=== PATIENT | male | born 1960 | race Caucasian/White ===

== ENCOUNTER → 2020-04-23 | Outpatient (REF) | payer BC ==
[2020-04-23 18:37] LABS: ALBUMIN 3.8 GM/DL (3.2-5.2); ALT/SGPT 31 U/L (12-78); BILIRUBIN,TOTAL 0.7 MG/DL (0.2-1.0); BLOOD UREA NITROGEN 14 MG/DL (7-18); CALCIUM LEVEL 8.7 MG/DL (8.5-10.1); CARBON DIOXIDE LEVEL 26 MEQ/L (21-32); CHLORIDE LEVEL 106 MEQ/L (98-107); CREATININE FOR GFR 0.89 MG/DL (0.70-1.30); GLOMERULAR FILTRATION RATE > 60.0 (>56); GLUCOSE, FASTING 84 MG/DL (70-100); POTASSIUM SERUM 5.7 MEQ/L (3.5-5.1); SODIUM LEVEL 137 MEQ/L (136-145); TOTAL PROTEIN 7.6 GM/DL (6.4-8.2)
== END ==
LOC: M LAB REF 17:29
PROVIDERS: ATTEND Internal Medicine Pulmonary Disease
DX: J43.9 Emphysema, unspecified (principal)

== ENCOUNTER → 2020-07-02 | Outpatient (REF) | payer BC ==
[2020-07-02 18:09] LABS: ALBUMIN 3.5 GM/DL (3.2-5.2); ALT/SGPT 25 U/L (12-78); BILIRUBIN,TOTAL 0.6 MG/DL (0.2-1.0); BLOOD UREA NITROGEN 10 MG/DL (7-18); CALCIUM LEVEL 8.8 MG/DL (8.5-10.1); CARBON DIOXIDE LEVEL 23 MEQ/L (21-32); CHLORIDE LEVEL 105 MEQ/L (98-107); CK-MB VALUE MASS < 1.0 NG/ML (<3.6); CPK CREATINE PHOSPHOKINASE 83 U/L (39-308); CREATININE FOR GFR 0.88 MG/DL (0.70-1.30); GLOMERULAR FILTRATION RATE > 60.0 (>56); GLUCOSE, FASTING 122 MG/DL (70-100); POTASSIUM SERUM 4.1 MEQ/L (3.5-5.1); SODIUM LEVEL 138 MEQ/L (136-145); TOTAL PROTEIN 7.6 GM/DL (6.4-8.2); TROPONIN I < 0.02 NG/ML (< 0.10)
== END ==
LOC: M LAB REF 16:51
PROVIDERS: ATTEND Internal Medicine Pulmonary Disease
DX: J84.112 Idiopathic pulmonary fibrosis (principal)

== ENCOUNTER → 2020-10-07 | Outpatient (REF) | payer BC ==
[2020-10-07 18:18] LABS: BASO % 0.3 % (0.0-1.0); EOS # 0.3 10^3/uL (0.0-0.5); EOS % 2.7 % (0.0-3.0); HEMATOCRIT 51.5 % (42.0-52.0); HEMOGLOBIN 16.7 g/dl (13.5-17.5); LYMPH # 4.3 10^3/uL (1.5-5.0); MEAN CORPUSCULAR HEMOGLOBIN 30.9 pg (27.0-33.0); MEAN CORPUSCULAR HGB CONC 32.4 g/dl (32.0-36.5); MEAN CORPUSCULAR VOLUME 95.4 fl (80.0-96.0); MONO % 8.9 % (2.0-8.0); NEUTROPHILS # 5.9 10^3/uL (1.5-8.5); NEUTROPHILS % 50.8 % (36.0-66.0); PLATELET COUNT, AUTOMATED 216 10^3/uL (150-450); WHITE BLOOD COUNT 11.6 10^3/uL (4.0-10.0)
[2020-10-07 18:45] LABS: ALBUMIN 4.2 GM/DL (3.2-5.2); ALT/SGPT 33 U/L (12-78); BILIRUBIN,TOTAL 0.5 MG/DL (0.2-1.0); BLOOD UREA NITROGEN 13 MG/DL (7-18); CALCIUM LEVEL 9.3 MG/DL (8.5-10.1); CARBON DIOXIDE LEVEL 30 MEQ/L (21-32); CHLORIDE LEVEL 104 MEQ/L (98-107); CREATININE FOR GFR 1.09 MG/DL (0.70-1.30); GLOMERULAR FILTRATION RATE > 60.0 (>56); GLUCOSE, FASTING 75 MG/DL (70-100); NT-PRO BNP 82 PG/ML (<125); POTASSIUM SERUM 4.6 MEQ/L (3.5-5.1); SODIUM LEVEL 141 MEQ/L (136-145); TOTAL PROTEIN 8.2 GM/DL (6.4-8.2); TROPONIN I < 0.02 NG/ML (< 0.10)
== END ==
LOC: M PLALAB 16:47
PROVIDERS: ATTEND Internal Medicine Pulmonary Disease
DX: J84.112 Idiopathic pulmonary fibrosis (principal)

== ENCOUNTER → 2021-02-09 | Outpatient (REF) | payer BC ==
[2021-02-09 14:03] LABS: CK-MB VALUE MASS < 1.0 NG/ML (<3.6); CPK CREATINE PHOSPHOKINASE 73 U/L (39-308); MB/CK RELATIVE INDEX 1.37 (< OR =4)
== END ==
LOC: M LAB REF 12:46
PROVIDERS: ATTEND Internal Medicine Pulmonary Disease
DX: J84.112 Idiopathic pulmonary fibrosis (principal)

== ENCOUNTER → 2021-04-22 | Outpatient (CLI) | payer BC ==
--- NOTE | 2021-04-22 13:01 | PFTRPT ---
Site: [facility], [address] [place], [address] ID: [id number] Name: NAYELY MOSES Visit Date: 04/22/2021 Second ID: [id number] Referring Doctor: Bonita Arechiga MD Reviewing Doctor: Shane Arguello MD Terrapin Fisher: Sonia NYE RRT Age: 61 : 1960 Sex: Male Race: Height: 64.50 Inches Weight: 211.00 Lbs BSA: 2.01 Order IDs: [id number]
--- NOTE | 2021-04-22 13:01 | PFTRPT ---
Height: 64.50 Inches Weight: 211.00 Lbs BSA: 2.01 DATE: 04/22/2021 ORDERING PHYSICIAN: Bonita Arechiga MD Pre and post bronchodilator studies have excellent technical quality. Some difficulty with effort is noted. Forced vital capacity is reduced. FEV1 is in proportion. Obstructive index is therefore normal. Expiratory limit of the flow-volume loop does suggest probably restrictive impairment. Total lung capacity is reduced. Residual volume is in proportion. Diffusing capacity is markedly reduced and does not correct for alveolar volume. Hemoglobin elevated at 18.6. Airway resistance and conductance are normal. IMPRESSION: At least mild restrictive ventilatory impairment with very significant diffusing capacity impairment and an elevated hemoglobin suggesting polycythemia. Please correlate clinically. MTDD
== END ==
LOC: M CARPUL 12:21
PROVIDERS: ATTEND Internal Medicine Pulmonary Disease
DX: J84.112 Idiopathic pulmonary fibrosis (principal)

== ENCOUNTER 2022-08-26 12:48 | Inpatient (IN) | payer BC, OTHER ==
[~2022-08-26] VITALS: Ht 167.6 cm; Wt 99.4 kg
[2022-08-26 13:47] LABS: VENOUS BASE EXCESS 0.2 (-2.0-2.0); VENOUS HCO3 26.8 MEQ/L (23.0-27.0); VENOUS O2 SATURATION 47.1 % (60.0-80.0); VENOUS PARTIAL PRESSURE CO2 50.2 mmHg (38.0-50.0); VENOUS PARTIAL PRESSURE O2 26.9 mmHg (30.0-50.0); VENOUS PH 7.345 UNITS (7.330-7.430); VENOUS STANDARD HCO3 23.2 MEQ/L; VENOUS TOTAL CO2 28.3 MEQ/L (24.0-28.0)
[2022-08-26 13:52] LABS: BASO % 0.3 % (0.0-1.0); EOS # 0.3 10^3/uL (0.0-0.5); EOS % 2.2 % (0.0-3.0); HEMATOCRIT 49.8 % (42.0-52.0); HEMOGLOBIN 16.4 g/dl (13.5-17.5); LYMPH # 2.5 10^3/uL (1.5-5.0); MEAN CORPUSCULAR HEMOGLOBIN 31.5 pg (27.0-33.0); MEAN CORPUSCULAR HGB CONC 32.9 g/dl (32.0-36.5); MEAN CORPUSCULAR VOLUME 95.6 fl (80.0-96.0); MONO # 0.9 10^3/uL (0.0-0.8); MONO % 7.2 % (2.0-8.0); NEUTROPHILS # 8.6 10^3/uL (1.5-8.5); NEUTROPHILS % 69.5 % (36.0-66.0); PLATELET COUNT, AUTOMATED 158 10^3/uL (150-450); RED BLOOD COUNT 5.21 10^6/uL (4.30-6.10); WHITE BLOOD COUNT 12.3 10^3/uL (4.0-10.0)
[2022-08-26] MEDS ORDERED: ISOVUE-370 76% 100ML VIAL As Ordered ONE ×2 (13:58→14:11)
[2022-08-26 14:05] LABS: INR 0.94; PARTIAL THROMBOPLASTIN TIME 23.5 SECONDS (24.8-34.2); PROTHROMBIN TIME 12.8 SECONDS (12.5-14.5)
[2022-08-26 14:15] LABS: ALBUMIN 3.4 G/DL (3.2-5.2); ALKALINE PHOSPHATASE 87 U/L (46-116); ALT/SGPT 36 U/L (7.0-40); AST/SGOT 25 U/L (<34); BILIRUBIN,DIRECT 0.4 MG/DL (<0.4); BILIRUBIN,TOTAL 1.1 MG/DL (0.3-1.2); BLOOD UREA NITROGEN 19 MG/DL (9-23); CALCIUM LEVEL 8.6 MG/DL (8.3-10.6); CARBON DIOXIDE LEVEL 27 MMOL/L (20-31); CHLORIDE LEVEL 101 MMOL/L (98-107); CREATININE FOR GFR 0.92 MG/DL (0.70-1.30); GLOMERULAR FILTRATION RATE > 60.0 (>49); GLUCOSE, FASTING 84 MG/DL (74-106); POTASSIUM SERUM 3.8 MMOL/L (3.5-5.1); SODIUM LEVEL 138 MMOL/L (136-145)
[2022-08-26 14:19] LABS: THYROID STIMULATING HORMONE 1.738 uIU/ML (0.55-4.78)
[2022-08-26] MEDS ORDERED: MEROPENEM INJ 1 GM in IV 1 EA IV ONE (15:40)
[2022-08-26] MEDS ORDERED: AZITHROMYCIN INJ 500 MG, VIAL MATE ADAPTER 1 EACH in NS 250 ML IV ONE (15:40)
[2022-08-26] MEDS ORDERED: ASPI81TA26 PO (16:08)
[2022-08-26] MEDS ORDERED: FURO20TA2 PO (16:08)
[2022-08-26] MEDS ORDERED: POTA-151 PO (16:08)
[2022-08-26] MEDS ORDERED: NEXI20TA PO (16:08)
[2022-08-26] MEDS ORDERED: PRED20TA PO (16:08)
[2022-08-26] MEDS ORDERED: HOME MED LIST COMPLETE! XX SCH (16:10)
[2022-08-26] MEDS ORDERED: IPRATROPIUM 0.5MG/ALBUTEROL 2.5MG INH SOL UD 3ML (DUONEB) NEB PRN (17:55)
[2022-08-26] MEDS: methylPREDNISolone 125MG 2ML VIAL IV SCH (18:46)
[2022-08-26 19:04] LABS: INR 1.01; PROTHROMBIN TIME 13.5 SECONDS (12.5-14.5)
[2022-08-26] MEDS: IPRATROPIUM 0.5MG/ALBUTEROL 2.5MG INH SOL UD 3ML (DUONEB) NEB SCH (19:07)
[2022-08-26 21:55] VITALS: BP 121/83
[2022-08-27] VITALS (7 sets, daily range): BP systolic 111–128; BP diastolic 60–88
[2022-08-27] MEDS: methylPREDNISolone 125MG 2ML VIAL IV SCH ×5 (00:42→23:36)
[2022-08-27] MEDS: IPRATROPIUM 0.5MG/ALBUTEROL 2.5MG INH SOL UD 3ML (DUONEB) NEB SCH ×4 (01:50→19:56)
[2022-08-27] MEDS: MEROPENEM INJ 1 GM in IV 1 EA IV SCH ×3 (02:33→18:14)
[2022-08-27 05:22] LABS: HEMATOCRIT 44.7 % (42.0-52.0); MEAN CORPUSCULAR HEMOGLOBIN 31.5 pg (27.0-33.0); MEAN CORPUSCULAR HGB CONC 33.6 g/dl (32.0-36.5); MEAN CORPUSCULAR VOLUME 93.9 fl (80.0-96.0); PLATELET COUNT, AUTOMATED 153 10^3/uL (150-450); RED BLOOD COUNT 4.76 10^6/uL (4.30-6.10); WHITE BLOOD COUNT 6.1 10^3/uL (4.0-10.0)
[2022-08-27 05:48] LABS: BLOOD UREA NITROGEN 16 MG/DL (9-23); CALCIUM LEVEL 8.4 MG/DL (8.3-10.6); CARBON DIOXIDE LEVEL 24 MMOL/L (20-31); CHLORIDE LEVEL 101 MMOL/L (98-107); CREATININE FOR GFR 0.78 MG/DL (0.70-1.30); GLOMERULAR FILTRATION RATE > 60.0 (>49); GLUCOSE, FASTING 157 MG/DL (74-106); POTASSIUM SERUM 4.2 MMOL/L (3.5-5.1); SODIUM LEVEL 137 MMOL/L (136-145)
[2022-08-27] MEDS: ASPIRIN 81MG ENTERIC TABLET PO SCH (08:17)
[2022-08-27] MEDS: POTASSIUM CHLORIDE 10MEQ SR TABLET PO SCH (08:18)
[2022-08-27] MEDS: FUROSEMIDE 20 MG TAB PO SCH (08:18)
[2022-08-27] MEDS ORDERED: PANTOPRAZOLE 40MG TAB (PROTONIX) PO SCH (09:00)
[2022-08-27] MEDS ORDERED: ENOXAPARIN 40MG/0.4ML SYRINGE (J1650 PER 10MG) SC SCH (09:00)
[2022-08-27] MEDS ORDERED: CHLORASEPTIC SPRAY MT PRN (15:20)
[2022-08-27] MEDS: AZITHROMYCIN INJ 500 MG, VIAL MATE ADAPTER 1 EACH in NS 250 ML IV SCH (16:36)
[2022-08-27] MEDS: PANTOPRAZOLE 40MG TAB (PROTONIX) PO SCH (20:27)
[2022-08-28 00:16] VITALS: BP 120/68
[2022-08-28] MEDS: MEROPENEM INJ 1 GM in IV 1 EA IV SCH ×2 (01:35→10:54)
[2022-08-28] MEDS: IPRATROPIUM 0.5MG/ALBUTEROL 2.5MG INH SOL UD 3ML (DUONEB) NEB SCH ×4 (01:51→21:17)
[2022-08-28 04:06] VITALS: BP 113/73
[2022-08-28] MEDS: methylPREDNISolone 125MG 2ML VIAL IV SCH ×4 (05:16→23:16)
[2022-08-28 07:28] LABS: BASO % 0.1 % (0.0-1.0); HEMATOCRIT 42.4 % (42.0-52.0); LYMPH % 6.4 % (24.0-44.0); MEAN CORPUSCULAR HEMOGLOBIN 31.4 pg (27.0-33.0); MEAN CORPUSCULAR VOLUME 95.1 fl (80.0-96.0); MONO # 0.5 10^3/uL (0.0-0.8); MONO % 3.3 % (2.0-8.0); NEUTROPHILS # 13.5 10^3/uL (1.5-8.5); NEUTROPHILS % 89.2 % (36.0-66.0); PLATELET COUNT, AUTOMATED 151 10^3/uL (150-450); RED BLOOD COUNT 4.46 10^6/uL (4.30-6.10); WHITE BLOOD COUNT 15.1 10^3/uL (4.0-10.0)
[2022-08-28 07:36] LABS: BLOOD UREA NITROGEN 17 MG/DL (9-23); CALCIUM LEVEL 8.1 MG/DL (8.3-10.6); CARBON DIOXIDE LEVEL 27 MMOL/L (20-31); CHLORIDE LEVEL 105 MMOL/L (98-107); CREATININE FOR GFR 0.77 MG/DL (0.70-1.30); GLOMERULAR FILTRATION RATE > 60.0 (>49); GLUCOSE, FASTING 148 MG/DL (74-106); POTASSIUM SERUM 4.5 MMOL/L (3.5-5.1); SODIUM LEVEL 138 MMOL/L (136-145)
[2022-08-28 08:00] VITALS: BP 98/70
[2022-08-28] MEDS: FUROSEMIDE 20 MG TAB PO SCH (09:00)
[2022-08-28] MEDS: POTASSIUM CHLORIDE 10MEQ SR TABLET PO SCH (10:54)
[2022-08-28] MEDS: ENOXAPARIN 40MG/0.4ML SYRINGE (J1650 PER 10MG) SC SCH (10:55)
[2022-08-28] MEDS: PANTOPRAZOLE 40MG TAB (PROTONIX) PO SCH ×2 (10:55→20:12)
[2022-08-28] MEDS: ASPIRIN 81MG ENTERIC TABLET PO SCH (10:55)
[2022-08-28 12:00] VITALS: BP 108/61
[2022-08-28] MEDS: AZITHROMYCIN INJ 500 MG, VIAL MATE ADAPTER 1 EACH in NS 250 ML IV SCH (16:39)
[2022-08-28 16:54] VITALS: BP 128/57
[2022-08-28 20:00] VITALS: BP 114/55
[2022-08-29] VITALS (7 sets, daily range): BP systolic 99–113; BP diastolic 58–71
[2022-08-29] MEDS: IPRATROPIUM 0.5MG/ALBUTEROL 2.5MG INH SOL UD 3ML (DUONEB) NEB SCH ×4 (01:08→20:41)
[2022-08-29 05:18] LABS: HEMATOCRIT 41.2 % (42.0-52.0); HEMOGLOBIN 13.5 g/dl (13.5-17.5); MEAN CORPUSCULAR HEMOGLOBIN 31.1 pg (27.0-33.0); MEAN CORPUSCULAR HGB CONC 32.8 g/dl (32.0-36.5); MEAN CORPUSCULAR VOLUME 94.9 fl (80.0-96.0); PLATELET COUNT, AUTOMATED 158 10^3/uL (150-450); RED BLOOD COUNT 4.34 10^6/uL (4.30-6.10); WHITE BLOOD COUNT 14.9 10^3/uL (4.0-10.0)
[2022-08-29] MEDS: methylPREDNISolone 125MG 2ML VIAL IV SCH ×3 (05:21→18:56)
[2022-08-29] MEDS: ASPIRIN 81MG ENTERIC TABLET PO SCH (09:32)
[2022-08-29] MEDS: POTASSIUM CHLORIDE 10MEQ SR TABLET PO SCH (09:32)
[2022-08-29] MEDS: BACTRIM 160MG/800MG DS TAB PO SCH (09:32)
[2022-08-29] MEDS: PANTOPRAZOLE 40MG TAB (PROTONIX) PO SCH ×2 (09:32→20:58)
[2022-08-29] MEDS: FUROSEMIDE 20 MG TAB PO SCH (09:32)
[2022-08-29] MEDS: ENOXAPARIN 40MG/0.4ML SYRINGE (J1650 PER 10MG) SC SCH (09:33)
[2022-08-29] MEDS: AZITHROMYCIN INJ 500 MG, VIAL MATE ADAPTER 1 EACH in NS 250 ML IV SCH (16:27)
[2022-08-30] MEDS: methylPREDNISolone 125MG 2ML VIAL IV SCH ×4 (00:46→17:12)
[2022-08-30] MEDS: IPRATROPIUM 0.5MG/ALBUTEROL 2.5MG INH SOL UD 3ML (DUONEB) NEB SCH ×4 (01:14→19:45)
[2022-08-30 04:51] LABS: HEMATOCRIT 40.1 % (42.0-52.0); HEMOGLOBIN 13.1 g/dl (13.5-17.5); MEAN CORPUSCULAR HEMOGLOBIN 31.1 pg (27.0-33.0); MEAN CORPUSCULAR HGB CONC 32.7 g/dl (32.0-36.5); MEAN CORPUSCULAR VOLUME 95.2 fl (80.0-96.0); PLATELET COUNT, AUTOMATED 141 10^3/uL (150-450); RED BLOOD COUNT 4.21 10^6/uL (4.30-6.10); WHITE BLOOD COUNT 11.3 10^3/uL (4.0-10.0)
[2022-08-30 04:53] VITALS: BP 108/58
[2022-08-30 05:18] LABS: BLOOD UREA NITROGEN 20 MG/DL (9-23); CALCIUM LEVEL 8.2 MG/DL (8.3-10.6); CARBON DIOXIDE LEVEL 28 MMOL/L (20-31); CHLORIDE LEVEL 103 MMOL/L (98-107); CREATININE FOR GFR 0.79 MG/DL (0.70-1.30); GLOMERULAR FILTRATION RATE > 60.0 (>49); GLUCOSE, FASTING 129 MG/DL (74-106); POTASSIUM SERUM 4.5 MMOL/L (3.5-5.1); SODIUM LEVEL 138 MMOL/L (136-145)
[2022-08-30 08:00] VITALS: BP 122/78
[2022-08-30] MEDS: POTASSIUM CHLORIDE 10MEQ SR TABLET PO SCH (08:39)
[2022-08-30] MEDS: PANTOPRAZOLE 40MG TAB (PROTONIX) PO SCH ×2 (08:39→21:45)
[2022-08-30] MEDS: ASPIRIN 81MG ENTERIC TABLET PO SCH (08:39)
[2022-08-30] MEDS: FUROSEMIDE 20 MG TAB PO SCH (08:39)
[2022-08-30] MEDS: ENOXAPARIN 40MG/0.4ML SYRINGE (J1650 PER 10MG) SC SCH (08:40)
[2022-08-30 12:00] VITALS: BP 116/68
[2022-08-30 16:00] VITALS: BP 115/69
[2022-08-30] MEDS: AZITHROMYCIN 250MG TABLET PO SCH (17:12)
[2022-08-30 20:00] VITALS: BP 94/67
[2022-08-31] VITALS: BP 97/55
[2022-08-31] MEDS: methylPREDNISolone 125MG 2ML VIAL IV SCH ×5 (00:14→23:53)
[2022-08-31] MEDS: IPRATROPIUM 0.5MG/ALBUTEROL 2.5MG INH SOL UD 3ML (DUONEB) NEB SCH ×4 (02:43→19:31)
[2022-08-31 04:00] VITALS: BP 112/69
[2022-08-31 06:00] LABS: BASO % 0.1 % (0.0-1.0); HEMATOCRIT 41.5 % (42.0-52.0); HEMOGLOBIN 13.7 g/dl (13.5-17.5); LYMPH # 0.7 10^3/uL (1.5-5.0); LYMPH % 7.5 % (24.0-44.0); MEAN CORPUSCULAR HEMOGLOBIN 31.4 pg (27.0-33.0); MEAN CORPUSCULAR VOLUME 95.2 fl (80.0-96.0); MONO # 0.4 10^3/uL (0.0-0.8); MONO % 3.9 % (2.0-8.0); NEUTROPHILS # 8.5 10^3/uL (1.5-8.5); NEUTROPHILS % 87.6 % (36.0-66.0); PLATELET COUNT, AUTOMATED 146 10^3/uL (150-450); RED BLOOD COUNT 4.36 10^6/uL (4.30-6.10); WHITE BLOOD COUNT 9.8 10^3/uL (4.0-10.0)
[2022-08-31 06:33] LABS: BLOOD UREA NITROGEN 21 MG/DL (9-23); CALCIUM LEVEL 8.2 MG/DL (8.3-10.6); CARBON DIOXIDE LEVEL 29 MMOL/L (20-31); CHLORIDE LEVEL 100 MMOL/L (98-107); CREATININE FOR GFR 0.78 MG/DL (0.70-1.30); GLOMERULAR FILTRATION RATE > 60.0 (>49); GLUCOSE, FASTING 126 MG/DL (74-106); POTASSIUM SERUM 4.2 MMOL/L (3.5-5.1); SODIUM LEVEL 135 MMOL/L (136-145)
[2022-08-31 07:39] VITALS: BP 112/73
[2022-08-31] MEDS: PANTOPRAZOLE 40MG TAB (PROTONIX) PO SCH ×2 (08:51→20:47)
[2022-08-31] MEDS: ASPIRIN 81MG ENTERIC TABLET PO SCH (08:52)
[2022-08-31] MEDS: BACTRIM 160MG/800MG DS TAB PO SCH (08:52)
[2022-08-31] MEDS: POTASSIUM CHLORIDE 10MEQ SR TABLET PO SCH (08:52)
[2022-08-31] MEDS: FUROSEMIDE 20 MG TAB PO SCH (08:52)
[2022-08-31] MEDS: ENOXAPARIN 40MG/0.4ML SYRINGE (J1650 PER 10MG) SC SCH (08:53)
[2022-08-31 12:31] VITALS: BP 118/62
[2022-08-31 16:23] VITALS: BP 110/70
[2022-08-31] MEDS: AZITHROMYCIN 250MG TABLET PO SCH (17:08)
[2022-08-31 20:00] VITALS: BP 117/67
[2022-09-01] VITALS: BP 103/68
[2022-09-01] MEDS: IPRATROPIUM 0.5MG/ALBUTEROL 2.5MG INH SOL UD 3ML (DUONEB) NEB SCH ×4 (01:40→19:26)
[2022-09-01 04:00] VITALS: BP 101/76
[2022-09-01] MEDS ORDERED: guaiFENesin SYRUP 200MG 10ML UDC PO PRN (05:25)
[2022-09-01] MEDS: methylPREDNISolone 125MG 2ML VIAL IV SCH ×4 (05:33→23:54)
[2022-09-01 05:58] LABS: BASO % 0.3 % (0.0-1.0); HEMATOCRIT 41.7 % (42.0-52.0); HEMOGLOBIN 13.9 g/dl (13.5-17.5); LYMPH # 0.6 10^3/uL (1.5-5.0); LYMPH % 6.1 % (24.0-44.0); MEAN CORPUSCULAR HEMOGLOBIN 31.4 pg (27.0-33.0); MEAN CORPUSCULAR HGB CONC 33.3 g/dl (32.0-36.5); MEAN CORPUSCULAR VOLUME 94.3 fl (80.0-96.0); MONO # 0.4 10^3/uL (0.0-0.8); MONO % 4.2 % (2.0-8.0); NEUTROPHILS # 8.9 10^3/uL (1.5-8.5); NEUTROPHILS % 88.4 % (36.0-66.0); PLATELET COUNT, AUTOMATED 153 10^3/uL (150-450); RED BLOOD COUNT 4.42 10^6/uL (4.30-6.10); WHITE BLOOD COUNT 10.1 10^3/uL (4.0-10.0)
[2022-09-01 06:08] LABS: BLOOD UREA NITROGEN 18 MG/DL (9-23); CALCIUM LEVEL 8.2 MG/DL (8.3-10.6); CARBON DIOXIDE LEVEL 29 MMOL/L (20-31); CHLORIDE LEVEL 100 MMOL/L (98-107); CREATININE FOR GFR 0.77 MG/DL (0.70-1.30); GLOMERULAR FILTRATION RATE > 60.0 (>49); GLUCOSE, FASTING 132 MG/DL (74-106); POTASSIUM SERUM 4.3 MMOL/L (3.5-5.1); SODIUM LEVEL 135 MMOL/L (136-145)
[2022-09-01 07:57] VITALS: BP 100/67
[2022-09-01] MEDS: PANTOPRAZOLE 40MG TAB (PROTONIX) PO SCH ×2 (09:29→21:05)
[2022-09-01] MEDS: ENOXAPARIN 40MG/0.4ML SYRINGE (J1650 PER 10MG) SC SCH (09:29)
[2022-09-01] MEDS: FUROSEMIDE 20 MG TAB PO SCH (09:29)
[2022-09-01] MEDS: POTASSIUM CHLORIDE 10MEQ SR TABLET PO SCH (09:29)
[2022-09-01] MEDS: ASPIRIN 81MG ENTERIC TABLET PO SCH (09:29)
[2022-09-01] MEDS: guaiFENesin ER 600 MG TAB PO SCH ×2 (09:30→21:05)
[2022-09-01 10:48] LABS: C REACTIVE PROTEIN QUANTITATIV < 0.40 MG/DL (<1.0)
[2022-09-01 12:00] VITALS: BP 113/73
[2022-09-01] MEDS: LevoFLOXacin 750 MG TABLET PO SCH (13:16)
[2022-09-01 16:00] VITALS: BP 112/76
[2022-09-01 20:00] VITALS: BP 109/65
[2022-09-02] VITALS: BP 113/72
[2022-09-02] MEDS: IPRATROPIUM 0.5MG/ALBUTEROL 2.5MG INH SOL UD 3ML (DUONEB) NEB SCH ×5 (01:43→19:46)
[2022-09-02 04:00] VITALS: BP 122/76
[2022-09-02 05:42] LABS: BASO % 0.2 % (0.0-1.0); HEMATOCRIT 43.8 % (42.0-52.0); HEMOGLOBIN 14.3 g/dl (13.5-17.5); LYMPH # 0.5 10^3/uL (1.5-5.0); LYMPH % 5.5 % (24.0-44.0); MEAN CORPUSCULAR HEMOGLOBIN 31.1 pg (27.0-33.0); MEAN CORPUSCULAR HGB CONC 32.6 g/dl (32.0-36.5); MEAN CORPUSCULAR VOLUME 95.2 fl (80.0-96.0); MONO # 0.4 10^3/uL (0.0-0.8); MONO % 4.7 % (2.0-8.0); NEUTROPHILS # 8.2 10^3/uL (1.5-8.5); PLATELET COUNT, AUTOMATED 154 10^3/uL (150-450); WHITE BLOOD COUNT 9.3 10^3/uL (4.0-10.0)
[2022-09-02] MEDS: methylPREDNISolone 125MG 2ML VIAL IV SCH ×3 (05:48→21:52)
[2022-09-02] MEDS: LevoFLOXacin 750 MG TABLET PO SCH (05:50)
[2022-09-02 06:11] LABS: BLOOD UREA NITROGEN 22 MG/DL (9-23); CALCIUM LEVEL 8.1 MG/DL (8.3-10.6); CARBON DIOXIDE LEVEL 30 MMOL/L (20-31); CHLORIDE LEVEL 100 MMOL/L (98-107); CREATININE FOR GFR 0.86 MG/DL (0.70-1.30); GLOMERULAR FILTRATION RATE > 60.0 (>49); GLUCOSE, FASTING 126 MG/DL (74-106); POTASSIUM SERUM 4.6 MMOL/L (3.5-5.1); SODIUM LEVEL 135 MMOL/L (136-145)
[2022-09-02 07:40] VITALS: BP 128/78
[2022-09-02] MEDS: ENOXAPARIN 40MG/0.4ML SYRINGE (J1650 PER 10MG) SC SCH (08:36)
[2022-09-02] MEDS: POTASSIUM CHLORIDE 10MEQ SR TABLET PO SCH (08:37)
[2022-09-02] MEDS: FUROSEMIDE 20 MG TAB PO SCH (08:37)
[2022-09-02] MEDS: guaiFENesin ER 600 MG TAB PO SCH ×2 (08:37→21:52)
[2022-09-02] MEDS: BACTRIM 160MG/800MG DS TAB PO SCH (08:37)
[2022-09-02] MEDS: PANTOPRAZOLE 40MG TAB (PROTONIX) PO SCH ×2 (08:37→21:52)
[2022-09-02] MEDS: ASPIRIN 81MG ENTERIC TABLET PO SCH (08:37)
[2022-09-02 11:54] VITALS: BP 117/74
[2022-09-02 16:10] VITALS: BP 114/76
[2022-09-02 20:00] VITALS: BP 117/70
[2022-09-03] VITALS: BP 112/56
[2022-09-03] MEDS: IPRATROPIUM 0.5MG/ALBUTEROL 2.5MG INH SOL UD 3ML (DUONEB) NEB SCH ×4 (01:42→20:03)
[2022-09-03 04:00] VITALS: BP 117/75
[2022-09-03 04:59] LABS: BASO % 0.2 % (0.0-1.0); HEMATOCRIT 41.9 % (42.0-52.0); LYMPH # 0.5 10^3/uL (1.5-5.0); LYMPH % 5.3 % (24.0-44.0); MEAN CORPUSCULAR HEMOGLOBIN 31.3 pg (27.0-33.0); MEAN CORPUSCULAR HGB CONC 33.4 g/dl (32.0-36.5); MEAN CORPUSCULAR VOLUME 93.5 fl (80.0-96.0); MONO # 0.5 10^3/uL (0.0-0.8); MONO % 5.1 % (2.0-8.0); NEUTROPHILS # 8.1 10^3/uL (1.5-8.5); NEUTROPHILS % 87.5 % (36.0-66.0); PLATELET COUNT, AUTOMATED 142 10^3/uL (150-450); RED BLOOD COUNT 4.48 10^6/uL (4.30-6.10); WHITE BLOOD COUNT 9.3 10^3/uL (4.0-10.0)
[2022-09-03 05:30] LABS: BLOOD UREA NITROGEN 17 MG/DL (9-23); CARBON DIOXIDE LEVEL 30 MMOL/L (20-31); CHLORIDE LEVEL 100 MMOL/L (98-107); CREATININE FOR GFR 0.82 MG/DL (0.70-1.30); GLOMERULAR FILTRATION RATE > 60.0 (>49); GLUCOSE, FASTING 123 MG/DL (74-106); POTASSIUM SERUM 4.2 MMOL/L (3.5-5.1); SODIUM LEVEL 135 MMOL/L (136-145)
[2022-09-03] MEDS: methylPREDNISolone 125MG 2ML VIAL IV SCH ×3 (06:09→21:10)
[2022-09-03] MEDS: LevoFLOXacin 750 MG TABLET PO SCH (06:09)
[2022-09-03 08:11] VITALS: BP 114/72
[2022-09-03] MEDS: FUROSEMIDE 20 MG TAB PO SCH (08:43)
[2022-09-03] MEDS: guaiFENesin ER 600 MG TAB PO SCH ×2 (08:44→21:10)
[2022-09-03] MEDS: ENOXAPARIN 40MG/0.4ML SYRINGE (J1650 PER 10MG) SC SCH (08:44)
[2022-09-03] MEDS: PANTOPRAZOLE 40MG TAB (PROTONIX) PO SCH ×2 (08:44→21:10)
[2022-09-03] MEDS: ASPIRIN 81MG ENTERIC TABLET PO SCH (08:44)
[2022-09-03] MEDS: POTASSIUM CHLORIDE 10MEQ SR TABLET PO SCH (08:44)
[2022-09-03 12:00] VITALS: BP 116/67
[2022-09-03 16:33] VITALS: BP 116/71
[2022-09-03 19:32] VITALS: BP 119/79
[2022-09-04] VITALS: BP 106/70
[2022-09-04] MEDS: IPRATROPIUM 0.5MG/ALBUTEROL 2.5MG INH SOL UD 3ML (DUONEB) NEB SCH ×4 (02:08→19:41)
[2022-09-04 04:00] VITALS: BP 104/62
[2022-09-04] MEDS ORDERED: DICLOFENAC EPOLAMINE 1.3% PATCH TOP ONE (05:00)
[2022-09-04] MEDS: methylPREDNISolone 125MG 2ML VIAL IV SCH ×2 (05:26→17:59)
[2022-09-04] MEDS: LevoFLOXacin 750 MG TABLET PO SCH (05:26)
[2022-09-04 06:13] LABS: BASO % 0.3 % (0.0-1.0); HEMATOCRIT 42.8 % (42.0-52.0); HEMOGLOBIN 14.4 g/dl (13.5-17.5); LYMPH # 0.6 10^3/uL (1.5-5.0); LYMPH % 6.3 % (24.0-44.0); MEAN CORPUSCULAR HEMOGLOBIN 31.2 pg (27.0-33.0); MEAN CORPUSCULAR HGB CONC 33.6 g/dl (32.0-36.5); MEAN CORPUSCULAR VOLUME 92.8 fl (80.0-96.0); MONO # 0.5 10^3/uL (0.0-0.8); MONO % 5.1 % (2.0-8.0); NEUTROPHILS # 8.8 10^3/uL (1.5-8.5); NEUTROPHILS % 85.8 % (36.0-66.0); PLATELET COUNT, AUTOMATED 150 10^3/uL (150-450); RED BLOOD COUNT 4.61 10^6/uL (4.30-6.10); WHITE BLOOD COUNT 10.2 10^3/uL (4.0-10.0)
[2022-09-04 06:41] LABS: BLOOD UREA NITROGEN 23 MG/DL (9-23); CALCIUM LEVEL 7.9 MG/DL (8.3-10.6); CARBON DIOXIDE LEVEL 28 MMOL/L (20-31); CHLORIDE LEVEL 100 MMOL/L (98-107); CREATININE FOR GFR 0.81 MG/DL (0.70-1.30); GLOMERULAR FILTRATION RATE > 60.0 (>49); GLUCOSE, FASTING 120 MG/DL (74-106); POTASSIUM SERUM 4.4 MMOL/L (3.5-5.1); SODIUM LEVEL 134 MMOL/L (136-145)
[2022-09-04 07:43] VITALS: BP 114/73
[2022-09-04] MEDS ORDERED: FUROSEMIDE 40MG/4ML VIAL IV ONE (07:50)
[2022-09-04] MEDS: guaiFENesin ER 600 MG TAB PO SCH ×2 (08:13→20:39)
[2022-09-04] MEDS: POTASSIUM CHLORIDE 10MEQ SR TABLET PO SCH (08:13)
[2022-09-04] MEDS: PANTOPRAZOLE 40MG TAB (PROTONIX) PO SCH ×2 (08:13→20:39)
[2022-09-04] MEDS: ASPIRIN 81MG ENTERIC TABLET PO SCH (08:13)
[2022-09-04] MEDS: ENOXAPARIN 40MG/0.4ML SYRINGE (J1650 PER 10MG) SC SCH (08:14)
[2022-09-04 11:47] VITALS: BP 108/67
[2022-09-04 16:29] VITALS: BP 124/79
[2022-09-04 20:00] VITALS: BP 102/66
[2022-09-04] MEDS: DICLOFENAC EPOLAMINE 1.3% PATCH TOP SCH (20:39)
[2022-09-05] VITALS (18 sets, daily range): BP systolic 110–145; BP diastolic 70–78; O2SAT 90–96
[2022-09-05] MEDS: IPRATROPIUM 0.5MG/ALBUTEROL 2.5MG INH SOL UD 3ML (DUONEB) NEB SCH ×4 (01:40→19:14)
[2022-09-05 05:07] LABS: BASO % 0.4 % (0.0-1.0); HEMATOCRIT 43.4 % (42.0-52.0); HEMOGLOBIN 14.5 g/dl (13.5-17.5); LYMPH # 0.7 10^3/uL (1.5-5.0); LYMPH % 6.3 % (24.0-44.0); MEAN CORPUSCULAR HEMOGLOBIN 31.4 pg (27.0-33.0); MEAN CORPUSCULAR HGB CONC 33.4 g/dl (32.0-36.5); MEAN CORPUSCULAR VOLUME 93.9 fl (80.0-96.0); MONO # 0.6 10^3/uL (0.0-0.8); MONO % 5.2 % (2.0-8.0); NEUTROPHILS # 9.4 10^3/uL (1.5-8.5); NEUTROPHILS % 85.6 % (36.0-66.0); PLATELET COUNT, AUTOMATED 134 10^3/uL (150-450); RED BLOOD COUNT 4.62 10^6/uL (4.30-6.10)
[2022-09-05] MEDS: methylPREDNISolone 125MG 2ML VIAL IV SCH ×2 (05:26→17:50)
[2022-09-05] MEDS: LevoFLOXacin 750 MG TABLET PO SCH (05:26)
[2022-09-05 05:38] LABS: BLOOD UREA NITROGEN 26 MG/DL (9-23); CALCIUM LEVEL 7.6 MG/DL (8.3-10.6); CARBON DIOXIDE LEVEL 30 MMOL/L (20-31); CHLORIDE LEVEL 98 MMOL/L (98-107); CREATININE FOR GFR 0.82 MG/DL (0.70-1.30); GLOMERULAR FILTRATION RATE > 60.0 (>49); GLUCOSE, FASTING 114 MG/DL (74-106); POTASSIUM SERUM 4.5 MMOL/L (3.5-5.1); SODIUM LEVEL 134 MMOL/L (136-145)
[2022-09-05] MEDS: ENOXAPARIN 40MG/0.4ML SYRINGE (J1650 PER 10MG) SC SCH (08:38)
[2022-09-05] MEDS: DICLOFENAC EPOLAMINE 1.3% PATCH TOP SCH ×2 (08:38→20:53)
[2022-09-05] MEDS: FUROSEMIDE 40MG/4ML VIAL IV SCH ×2 (08:39→17:51)
[2022-09-05] MEDS: BACTRIM 160MG/800MG DS TAB PO SCH (08:39)
[2022-09-05] MEDS: PANTOPRAZOLE 40MG TAB (PROTONIX) PO SCH ×2 (08:39→20:52)
[2022-09-05] MEDS: ASPIRIN 81MG ENTERIC TABLET PO SCH (08:39)
[2022-09-05] MEDS: POTASSIUM CHLORIDE 10MEQ SR TABLET PO SCH (08:39)
[2022-09-05] MEDS: guaiFENesin ER 600 MG TAB PO SCH ×2 (08:39→20:52)
[2022-09-06] VITALS (18 sets, daily range): BP systolic 109–116; BP diastolic 59–81; O2SAT 83–95
[2022-09-06] MEDS: IPRATROPIUM 0.5MG/ALBUTEROL 2.5MG INH SOL UD 3ML (DUONEB) NEB SCH ×4 (01:01→19:12)
[2022-09-06 05:48] LABS: BASO % 0.3 % (0.0-1.0); HEMATOCRIT 46.4 % (42.0-52.0); HEMOGLOBIN 15.7 g/dl (13.5-17.5); LYMPH # 0.6 10^3/uL (1.5-5.0); LYMPH % 4.4 % (24.0-44.0); MEAN CORPUSCULAR HEMOGLOBIN 31.9 pg (27.0-33.0); MEAN CORPUSCULAR HGB CONC 33.8 g/dl (32.0-36.5); MEAN CORPUSCULAR VOLUME 94.3 fl (80.0-96.0); MONO # 0.6 10^3/uL (0.0-0.8); MONO % 4.4 % (2.0-8.0); NEUTROPHILS # 11.6 10^3/uL (1.5-8.5); PLATELET COUNT, AUTOMATED 134 10^3/uL (150-450); RED BLOOD COUNT 4.92 10^6/uL (4.30-6.10); WHITE BLOOD COUNT 13.1 10^3/uL (4.0-10.0)
[2022-09-06 06:15] LABS: BLOOD UREA NITROGEN 30 MG/DL (9-23); CALCIUM LEVEL 7.7 MG/DL (8.3-10.6); CARBON DIOXIDE LEVEL 30 MMOL/L (20-31); CHLORIDE LEVEL 94 MMOL/L (98-107); CREATININE FOR GFR 0.87 MG/DL (0.70-1.30); GLOMERULAR FILTRATION RATE > 60.0 (>49); GLUCOSE, FASTING 136 MG/DL (74-106); POTASSIUM SERUM 4.1 MMOL/L (3.5-5.1); SODIUM LEVEL 132 MMOL/L (136-145)
[2022-09-06] MEDS: LevoFLOXacin 750 MG TABLET PO SCH (06:15)
[2022-09-06] MEDS: methylPREDNISolone 125MG 2ML VIAL IV SCH (06:15)
[2022-09-06] MEDS: ENOXAPARIN 40MG/0.4ML SYRINGE (J1650 PER 10MG) SC SCH (08:37)
[2022-09-06] MEDS: DICLOFENAC EPOLAMINE 1.3% PATCH TOP SCH ×2 (08:38→20:38)
[2022-09-06] MEDS: FUROSEMIDE 20 MG TAB PO SCH (08:38)
[2022-09-06] MEDS: ASPIRIN 81MG ENTERIC TABLET PO SCH (08:38)
[2022-09-06] MEDS: POTASSIUM CHLORIDE 10MEQ SR TABLET PO SCH (08:38)
[2022-09-06] MEDS: guaiFENesin ER 600 MG TAB PO SCH ×2 (08:39→20:38)
[2022-09-06] MEDS: PANTOPRAZOLE 40MG TAB (PROTONIX) PO SCH ×2 (08:39→20:38)
[2022-09-06] MEDS: IBUPROFEN 400MG TAB PO PRN (11:31)
[2022-09-06 17:07] LABS: BODY FLUID CULTURE Not indicated. (.); LEGIONELLA ANTIGEN URINE Negative (Negative); ORGANISM ID Not indicated. (.); SPECIMEN SOURCE Urine (.); URINE STREP PNEUMONIAE ANTIGEN Negative (Negative)
[2022-09-06] MEDS ORDERED: methylPREDNISolone 125MG 2ML VIAL IV SCH (18:00)
[2022-09-07] VITALS: BP 122/82; O2SAT 97
[2022-09-07] MEDS: IPRATROPIUM 0.5MG/ALBUTEROL 2.5MG INH SOL UD 3ML (DUONEB) NEB SCH ×3 (01:05→13:48)
[2022-09-07] MEDS: IBUPROFEN 400MG TAB PO PRN (01:54)
[2022-09-07] MEDS ORDERED: MORPHINE 2 MG/ML 1ML VIAL IV ONE ×2 (02:10→05:15)
[2022-09-07] MEDS ORDERED: MORPHINE 2 MG/ML 1ML VIAL As Ordered ONE (02:17)
[2022-09-07 04:00] VITALS: BP 123/72
[2022-09-07 05:41] LABS: BASO % 0.2 % (0.0-1.0); EOS % 0.2 % (0.0-3.0); HEMATOCRIT 46.7 % (42.0-52.0); HEMOGLOBIN 15.1 g/dl (13.5-17.5); LYMPH # 1.7 10^3/uL (1.5-5.0); LYMPH % 10.5 % (24.0-44.0); MEAN CORPUSCULAR HEMOGLOBIN 30.9 pg (27.0-33.0); MEAN CORPUSCULAR HGB CONC 32.3 g/dl (32.0-36.5); MEAN CORPUSCULAR VOLUME 95.5 fl (80.0-96.0); MONO # 0.7 10^3/uL (0.0-0.8); MONO % 4.7 % (2.0-8.0); NEUTROPHILS # 13.1 10^3/uL (1.5-8.5); NEUTROPHILS % 82.6 % (36.0-66.0); PLATELET COUNT, AUTOMATED 137 10^3/uL (150-450); RED BLOOD COUNT 4.89 10^6/uL (4.30-6.10); WHITE BLOOD COUNT 15.8 10^3/uL (4.0-10.0)
[2022-09-07 06:05] LABS: BLOOD UREA NITROGEN 26 MG/DL (9-23); CALCIUM LEVEL 7.7 MG/DL (8.3-10.6); CARBON DIOXIDE LEVEL 31 MMOL/L (20-31); CHLORIDE LEVEL 98 MMOL/L (98-107); GLOMERULAR FILTRATION RATE > 60.0 (>49); GLUCOSE, FASTING 85 MG/DL (74-106); POTASSIUM SERUM 4.2 MMOL/L (3.5-5.1); SODIUM LEVEL 134 MMOL/L (136-145)
[2022-09-07] MEDS: LevoFLOXacin 750 MG TABLET PO SCH (06:35)
[2022-09-07 08:00] VITALS: BP 135/80
[2022-09-07] MEDS ORDERED: HYDROMORPHONE HCL 0.5 MG/ 0.5 ML SYRINGE IV PRN (08:15)
[2022-09-07] MEDS: ASPIRIN 81MG ENTERIC TABLET PO SCH (08:48)
[2022-09-07] MEDS: ENOXAPARIN 40MG/0.4ML SYRINGE (J1650 PER 10MG) SC SCH (08:48)
[2022-09-07] MEDS: BACTRIM 160MG/800MG DS TAB PO SCH (08:49)
[2022-09-07] MEDS: PANTOPRAZOLE 40MG TAB (PROTONIX) PO SCH (08:49)
[2022-09-07] MEDS: POTASSIUM CHLORIDE 10MEQ SR TABLET PO SCH (08:49)
[2022-09-07] MEDS: guaiFENesin ER 600 MG TAB PO SCH (08:49)
[2022-09-07] MEDS: FUROSEMIDE 20 MG TAB PO SCH (08:49)
[2022-09-07] MEDS: DICLOFENAC EPOLAMINE 1.3% PATCH TOP SCH (09:00)
[2022-09-07] MEDS ORDERED: predniSONE 20 MG TAB PO SCH (09:00)
[2022-09-07] MEDS ORDERED: IBUP-1114 PO (10:52)
[2022-09-07] MEDS ORDERED: DICL1PAT6 TOP (10:52)
[2022-09-07] MEDS ORDERED: LIDO5DIS41 TOP (10:52)
[2022-09-07] MEDS ORDERED: PANT40TA29 PO (10:52)
[2022-09-07] MEDS ORDERED: PRED20TA PO (10:52)
[2022-09-07] MEDS ORDERED: LEVO1TAB40 PO (10:52)
[2022-09-07] MEDS ORDERED: BACTDSTA PO (10:52)
[2022-09-07] MEDS ORDERED: OXYC-517 PO (10:52)
[2022-09-07 11:55] VITALS: BP 113/85
[2022-09-07] MEDS ORDERED: DICL20GE TP (12:39)
[2022-09-10] MEDS ORDERED: predniSONE 20 MG TAB PO SCH (09:00)
[2022-09-13] MEDS ORDERED: predniSONE 20 MG TAB PO SCH (09:00)
== END 2022-09-07 14:20 | disposition home health service (06) | DRG 133 ==
LOC: M ED 12:48 → M ED INP 17:40 → M PCU 21:45
PROVIDERS: ADMIT Internal Medicine; ATTEND Student in an Organized Health Care Education/Training Program
DX: J96.21 Acute and chronic respiratory failure with hypoxia (principal); I50.33 Acute on chronic diastolic (congestive) heart failure; D84.9 Immunodeficiency, unspecified; J12.1 Respiratory syncytial virus pneumonia; J47.1 Bronchiectasis with (acute) exacerbation; J84.112 Idiopathic pulmonary fibrosis; C34.90 Malignant neoplasm of unspecified part of unspecified bronchus or lung; Z99.81 Dependence on supplemental oxygen; R04.2 Hemoptysis; E87.1 Hypo-osmolality and hyponatremia; I25.10 Atherosclerotic heart disease of native coronary artery without angina pectoris; J20.5 Acute bronchitis due to respiratory syncytial virus; K21.9 Gastro-esophageal reflux disease without esophagitis; M19.90 Unspecified osteoarthritis, unspecified site; Z92.3 Personal history of irradiation; Z88.0 Allergy status to penicillin; Z79.899 Other long term (current) drug therapy; Z79.82 Long term (current) use of aspirin; Z87.891 Personal history of nicotine dependence; Z79.52 Long term (current) use of systemic steroids

== ENCOUNTER 2022-09-14 14:04 | Inpatient (IN) | payer OTHER ==
[~2022-09-14] VITALS: Ht 167.6 cm; Wt 98.1 kg
[~2022-09-14 14:04] MED LIST: ASPI81TA26 PO; BACTDSTA PO; DICL1PAT6 TOP; DICL20GE TP; FURO20TA2 PO; IBUP-1114 PO; LEVO1TAB40 PO; LIDO5DIS41 TOP; NEXI20TA PO; OXYC-517 PO; PANT40TA29 PO; POTA-151 PO; PRED20TA PO
[2022-09-14] MEDS: IPRATROPIUM 0.5MG/ALBUTEROL 2.5MG INH SOL UD 3ML (DUONEB) NEB PRN ×3 (14:15→14:45)
[2022-09-14 14:53] LABS: BASO % 0.1 % (0.0-1.0); EOS % 0.1 % (0.0-3.0); HEMATOCRIT 44.5 % (42.0-52.0); HEMOGLOBIN 14.5 g/dl (13.5-17.5); LYMPH # 0.5 10^3/uL (1.5-5.0); LYMPH % 5.7 % (24.0-44.0); MEAN CORPUSCULAR HEMOGLOBIN 31.1 pg (27.0-33.0); MEAN CORPUSCULAR HGB CONC 32.6 g/dl (32.0-36.5); MEAN CORPUSCULAR VOLUME 95.5 fl (80.0-96.0); MONO # 0.2 10^3/uL (0.0-0.8); MONO % 2.5 % (2.0-8.0); NEUTROPHILS # 8.1 10^3/uL (1.5-8.5); NEUTROPHILS % 90.7 % (36.0-66.0); RED BLOOD COUNT 4.66 10^6/uL (4.30-6.10); WHITE BLOOD COUNT 8.9 10^3/uL (4.0-10.0)
[2022-09-14 15:21] LABS: ALBUMIN 2.7 G/DL (3.2-5.2); ALKALINE PHOSPHATASE 97 U/L (46-116); ALT/SGPT 55 U/L (7.0-40); AST/SGOT 36 U/L (<34); BILIRUBIN,DIRECT 0.5 MG/DL (<0.4); BILIRUBIN,TOTAL 1.4 MG/DL (0.3-1.2); BLOOD UREA NITROGEN 19 MG/DL (9-23); CALCIUM LEVEL 7.3 MG/DL (8.3-10.6); CARBON DIOXIDE LEVEL 25 MMOL/L (20-31); CHLORIDE LEVEL 102 MMOL/L (98-107); GLOMERULAR FILTRATION RATE > 60.0 (>49); GLUCOSE, FASTING 125 MG/DL (74-106); POTASSIUM SERUM 3.9 MMOL/L (3.5-5.1); SODIUM LEVEL 137 MMOL/L (136-145); TOTAL PROTEIN 5.4 G/DL (5.7-8.2)
[2022-09-14 15:24] LABS: PLATELET COUNT, AUTOMATED 90 10^3/uL (150-450)
[2022-09-14 15:24] LABS: THYROID STIMULATING HORMONE 2.007 uIU/ML (0.55-4.78)
[2022-09-14] MEDS ORDERED: PANT40TA29 PO (15:25)
[2022-09-14] MEDS ORDERED: LevoFLOXacin IV 750 MG in IV 1 EA IV ONE (15:30)
[2022-09-14] MEDS ORDERED: HOME MED LIST COMPLETE! XX SCH (15:30)
[2022-09-14] MEDS ORDERED: ISOVUE-370 76% 100ML VIAL As Ordered ONE (15:35)
[2022-09-14] MEDS ORDERED: FUROSEMIDE 20MG/2ML VIAL IV ONE (16:35)
[2022-09-14] MEDS ORDERED: ACETAMINOPHEN TAB 650MG DOSE (2X325MG) PO PRN (16:35)
[2022-09-14] MEDS ORDERED: VANCOMYCIN HCL 1,000 MG, VIAL MATE ADAPTER 1 EACH in NS 250 ML IV SCH (16:35)
[2022-09-14] MEDS ORDERED: MAALOX 30 ML SUSP *UDC PO PRN (16:35)
[2022-09-14] MEDS ORDERED: MOM 30ML SUSPENSION UDC PO PRN (16:35)
[2022-09-14] MEDS ORDERED: IPRATROPIUM 0.5MG/ALBUTEROL 2.5MG INH SOL UD 3ML (DUONEB) NEB PRN (16:35)
[2022-09-14 18:11] VITALS: BP 99/62
[2022-09-14] MEDS: methylPREDNISolone 125MG 2ML VIAL IV SCH ×2 (18:45→23:49)
[2022-09-14 19:55] VITALS: BP 105/55
[2022-09-14] MEDS: IPRATROPIUM 0.5MG/ALBUTEROL 2.5MG INH SOL UD 3ML (DUONEB) NEB SCH (20:03)
[2022-09-14] MEDS ORDERED: VANCOMYCIN HCL 1,000 MG, VIAL MATE ADAPTER 1 EACH in NS 250 ML IV ONE ×2 (21:00→22:00)
[2022-09-14] MEDS: DOCUSATE SODIUM 100MG CAPSULE PO SCH ×2 (21:00→21:28)
[2022-09-14] MEDS: MEROPENEM INJ 1 GM in IV 1 EA IV SCH (21:28)
[2022-09-14] MEDS: guaiFENesin ER 600 MG TAB PO SCH (21:28)
[2022-09-14] MEDS: PANTOPRAZOLE 40MG TAB (PROTONIX) PO SCH (21:28)
[2022-09-14 23:54] VITALS: BP 92/67
[2022-09-15 03:18] LABS: BASO % 0.1 % (0.0-1.0); HEMATOCRIT 39.6 % (42.0-52.0); HEMOGLOBIN 13.4 g/dl (13.5-17.5); LYMPH # 0.5 10^3/uL (1.5-5.0); LYMPH % 5.1 % (24.0-44.0); MEAN CORPUSCULAR HEMOGLOBIN 31.6 pg (27.0-33.0); MEAN CORPUSCULAR HGB CONC 33.8 g/dl (32.0-36.5); MEAN CORPUSCULAR VOLUME 93.4 fl (80.0-96.0); MONO # 0.1 10^3/uL (0.0-0.8); MONO % 1.4 % (2.0-8.0); NEUTROPHILS # 8.9 10^3/uL (1.5-8.5); NEUTROPHILS % 92.8 % (36.0-66.0); RED BLOOD COUNT 4.24 10^6/uL (4.30-6.10); WHITE BLOOD COUNT 9.5 10^3/uL (4.0-10.0)
[2022-09-15 03:29] LABS: PLATELET COUNT, AUTOMATED 84 10^3/uL (150-450)
[2022-09-15 03:39] LABS: BLOOD UREA NITROGEN 20 MG/DL (9-23); CALCIUM LEVEL 6.9 MG/DL (8.3-10.6); CARBON DIOXIDE LEVEL 24 MMOL/L (20-31); CHLORIDE LEVEL 102 MMOL/L (98-107); CREATININE FOR GFR 0.76 MG/DL (0.70-1.30); GLOMERULAR FILTRATION RATE > 60.0 (>49); GLUCOSE, FASTING 126 MG/DL (74-106); POTASSIUM SERUM 4.1 MMOL/L (3.5-5.1); SODIUM LEVEL 134 MMOL/L (136-145)
[2022-09-15 04:00] VITALS: BP 125/90
[2022-09-15 04:06] LABS: ABG BASE EXCESS -1.7 (-2.0-2.0); ABG HCO3 21.7 MEQ/L (22.0-26.0); ABG O2 SATURATION 93.6 % (95.0-99.0); ABG PARTIAL PRESSURE CO2 33.2 mmHg (35.0-45.0); ABG PARTIAL PRESSURE O2 66.9 mmHg (75.0-100.0); ABG TOTAL CO2 22.8 MEQ/L (23.0-31.0); ABG pH (ARTERIAL) 7.434 UNITS (7.350-7.450)
[2022-09-15] MEDS: MEROPENEM INJ 1 GM in IV 1 EA IV SCH ×3 (04:19→20:22)
[2022-09-15] MEDS ORDERED: VANCOMYCIN HCL 750 MG, VIAL MATE ADAPTER 1 EACH in D5W 250 ML IV SCH (05:00)
[2022-09-15] MEDS ORDERED: VANCOMYCIN HCL 500 MG in D5W MINI-BAG PLUS 100 ML IV SCH (06:00)
[2022-09-15] MEDS: methylPREDNISolone 125MG 2ML VIAL IV SCH ×4 (06:11→23:35)
[2022-09-15] MEDS: IPRATROPIUM 0.5MG/ALBUTEROL 2.5MG INH SOL UD 3ML (DUONEB) NEB SCH ×3 (07:30→20:46)
[2022-09-15] MEDS ORDERED: FUROSEMIDE 20MG/2ML VIAL IV ONE (07:40)
[2022-09-15 08:00] VITALS: BP 118/61
[2022-09-15] MEDS: ENOXAPARIN 40MG/0.4ML SYRINGE (J1650 PER 10MG) SC SCH (08:43)
[2022-09-15] MEDS: DOCUSATE SODIUM 100MG CAPSULE PO SCH ×2 (08:50→20:23)
[2022-09-15] MEDS: PANTOPRAZOLE 40MG TAB (PROTONIX) PO SCH ×2 (08:51→20:23)
[2022-09-15] MEDS: guaiFENesin ER 600 MG TAB PO SCH ×2 (08:51→20:23)
[2022-09-15] MEDS: ASPIRIN 81MG ENTERIC TABLET PO SCH (08:51)
[2022-09-15 12:00] VITALS: BP 118/72
[2022-09-15 16:00] VITALS: BP 117/70
[2022-09-15 20:00] VITALS: BP 118/80
[2022-09-16] VITALS (7 sets, daily range): BP systolic 108–132; BP diastolic 69–78
[2022-09-16] MEDS: IPRATROPIUM 0.5MG/ALBUTEROL 2.5MG INH SOL UD 3ML (DUONEB) NEB SCH ×4 (02:20→19:58)
[2022-09-16] MEDS: MEROPENEM INJ 1 GM in IV 1 EA IV SCH ×3 (03:59→19:23)
[2022-09-16 04:56] LABS: BASO % 0.1 % (0.0-1.0); HEMATOCRIT 38.2 % (42.0-52.0); HEMOGLOBIN 12.6 g/dl (13.5-17.5); LYMPH # 0.5 10^3/uL (1.5-5.0); LYMPH % 4.6 % (24.0-44.0); MEAN CORPUSCULAR HEMOGLOBIN 31.2 pg (27.0-33.0); MEAN CORPUSCULAR VOLUME 94.6 fl (80.0-96.0); MONO # 0.3 10^3/uL (0.0-0.8); MONO % 2.3 % (2.0-8.0); NEUTROPHILS # 10.9 10^3/uL (1.5-8.5); NEUTROPHILS % 92.3 % (36.0-66.0); RED BLOOD COUNT 4.04 10^6/uL (4.30-6.10); WHITE BLOOD COUNT 11.8 10^3/uL (4.0-10.0)
[2022-09-16 04:58] LABS: PLATELET COUNT, AUTOMATED 87 10^3/uL (150-450)
[2022-09-16 05:12] LABS: MAGNESIUM LEVEL 2.1 MG/DL (1.8-2.4)
[2022-09-16 05:13] LABS: BLOOD UREA NITROGEN 23 MG/DL (9-23); CALCIUM LEVEL 7.7 MG/DL (8.3-10.6); CARBON DIOXIDE LEVEL 26 MMOL/L (20-31); CHLORIDE LEVEL 103 MMOL/L (98-107); CREATININE FOR GFR 0.75 MG/DL (0.70-1.30); GLOMERULAR FILTRATION RATE > 60.0 (>49); GLUCOSE, FASTING 149 MG/DL (74-106); SODIUM LEVEL 136 MMOL/L (136-145)
[2022-09-16] MEDS: methylPREDNISolone 125MG 2ML VIAL IV SCH ×3 (05:28→17:28)
[2022-09-16 06:20] LABS: ABG BASE EXCESS 3.2 (-2.0-2.0); ABG HCO3 26.4 MEQ/L (22.0-26.0); ABG O2 SATURATION 88.2 % (95.0-99.0); ABG PARTIAL PRESSURE CO2 35.8 mmHg (35.0-45.0); ABG TOTAL CO2 27.5 MEQ/L (23.0-31.0); ABG pH (ARTERIAL) 7.485 UNITS (7.350-7.450)
[2022-09-16] MEDS ORDERED: FUROSEMIDE 20MG/2ML VIAL IV ONE ×2 (08:00→14:00)
[2022-09-16] MEDS: ENOXAPARIN 40MG/0.4ML SYRINGE (J1650 PER 10MG) SC SCH (08:15)
[2022-09-16] MEDS: ASPIRIN 81MG ENTERIC TABLET PO SCH (08:57)
[2022-09-16] MEDS: guaiFENesin ER 600 MG TAB PO SCH ×2 (08:57→20:49)
[2022-09-16] MEDS: PANTOPRAZOLE 40MG TAB (PROTONIX) PO SCH ×2 (08:57→20:49)
[2022-09-16] MEDS: BACTRIM 160MG/800MG DS TAB PO SCH (08:57)
[2022-09-16] MEDS: DOCUSATE SODIUM 100MG CAPSULE PO SCH ×2 (08:58→20:49)
[2022-09-17] VITALS (7 sets, daily range): BP systolic 122–136; BP diastolic 78–89
[2022-09-17] MEDS: methylPREDNISolone 125MG 2ML VIAL IV SCH ×5 (00:21→23:25)
[2022-09-17] MEDS: IPRATROPIUM 0.5MG/ALBUTEROL 2.5MG INH SOL UD 3ML (DUONEB) NEB SCH ×4 (00:47→19:16)
[2022-09-17] MEDS: MEROPENEM INJ 1 GM in IV 1 EA IV SCH ×3 (04:17→19:34)
[2022-09-17 04:30] LABS: BASO % 0.1 % (0.0-1.0); HEMATOCRIT 39.3 % (42.0-52.0); HEMOGLOBIN 12.7 g/dl (13.5-17.5); LYMPH # 0.7 10^3/uL (1.5-5.0); LYMPH % 6.4 % (24.0-44.0); MEAN CORPUSCULAR HGB CONC 32.3 g/dl (32.0-36.5); MEAN CORPUSCULAR VOLUME 95.9 fl (80.0-96.0); MONO # 0.2 10^3/uL (0.0-0.8); MONO % 2.4 % (2.0-8.0); NEUTROPHILS # 9.1 10^3/uL (1.5-8.5); NEUTROPHILS % 90.1 % (36.0-66.0); WHITE BLOOD COUNT 10.1 10^3/uL (4.0-10.0)
[2022-09-17 04:39] LABS: PLATELET COUNT, AUTOMATED 85 10^3/uL (150-450)
[2022-09-17 04:58] LABS: BLOOD UREA NITROGEN 32 MG/DL (9-23); CALCIUM LEVEL 7.6 MG/DL (8.3-10.6); CARBON DIOXIDE LEVEL 28 MMOL/L (20-31); CHLORIDE LEVEL 100 MMOL/L (98-107); CREATININE FOR GFR 0.78 MG/DL (0.70-1.30); GLOMERULAR FILTRATION RATE > 60.0 (>49); GLUCOSE, FASTING 137 MG/DL (74-106); MAGNESIUM LEVEL 2.3 MG/DL (1.8-2.4); POTASSIUM SERUM 4.2 MMOL/L (3.5-5.1); SODIUM LEVEL 135 MMOL/L (136-145)
[2022-09-17] MEDS: ASPIRIN 81MG ENTERIC TABLET PO SCH (08:35)
[2022-09-17] MEDS: PANTOPRAZOLE 40MG TAB (PROTONIX) PO SCH ×2 (08:35→20:24)
[2022-09-17] MEDS: guaiFENesin ER 600 MG TAB PO SCH ×2 (08:35→20:24)
[2022-09-17] MEDS: DOCUSATE SODIUM 100MG CAPSULE PO SCH ×2 (08:58→20:24)
[2022-09-17] MEDS: ENOXAPARIN 40MG/0.4ML SYRINGE (J1650 PER 10MG) SC SCH (09:40)
[2022-09-18] VITALS (9 sets, daily range): BP systolic 118–133; BP diastolic 67–83; O2SAT 90
[2022-09-18] MEDS: IPRATROPIUM 0.5MG/ALBUTEROL 2.5MG INH SOL UD 3ML (DUONEB) NEB SCH ×4 (02:46→19:48)
[2022-09-18] MEDS: MEROPENEM INJ 1 GM in IV 1 EA IV SCH ×3 (03:56→20:02)
[2022-09-18] MEDS: methylPREDNISolone 125MG 2ML VIAL IV SCH ×4 (05:30→23:58)
[2022-09-18 05:33] LABS: BLOOD UREA NITROGEN 33 MG/DL (9-23); CALCIUM LEVEL 8.2 MG/DL (8.3-10.6); CARBON DIOXIDE LEVEL 27 MMOL/L (20-31); CHLORIDE LEVEL 101 MMOL/L (98-107); CREATININE FOR GFR 0.67 MG/DL (0.70-1.30); GLOMERULAR FILTRATION RATE > 60.0 (>49); GLUCOSE, FASTING 146 MG/DL (74-106); MAGNESIUM LEVEL 2.4 MG/DL (1.8-2.4); POTASSIUM SERUM 4.9 MMOL/L (3.5-5.1); SODIUM LEVEL 136 MMOL/L (136-145)
[2022-09-18 05:59] LABS: BASO % 0.2 % (0.0-1.0); HEMATOCRIT 39.2 % (42.0-52.0); LYMPH # 0.6 10^3/uL (1.5-5.0); LYMPH % 6.6 % (24.0-44.0); MEAN CORPUSCULAR HEMOGLOBIN 31.6 pg (27.0-33.0); MEAN CORPUSCULAR HGB CONC 33.2 g/dl (32.0-36.5); MEAN CORPUSCULAR VOLUME 95.1 fl (80.0-96.0); MONO # 0.2 10^3/uL (0.0-0.8); NEUTROPHILS # 7.6 10^3/uL (1.5-8.5); RED BLOOD COUNT 4.12 10^6/uL (4.30-6.10); WHITE BLOOD COUNT 8.5 10^3/uL (4.0-10.0)
[2022-09-18 06:26] LABS: PLATELET COUNT, AUTOMATED 83 10^3/uL (150-450)
[2022-09-18] MEDS: DOCUSATE SODIUM 100MG CAPSULE PO SCH ×3 (08:08→21:00)
[2022-09-18] MEDS: guaiFENesin ER 600 MG TAB PO SCH ×2 (08:08→20:05)
[2022-09-18] MEDS: ASPIRIN 81MG ENTERIC TABLET PO SCH (08:08)
[2022-09-18] MEDS: PANTOPRAZOLE 40MG TAB (PROTONIX) PO SCH ×2 (08:08→20:05)
[2022-09-18] MEDS: ENOXAPARIN 40MG/0.4ML SYRINGE (J1650 PER 10MG) SC SCH (08:15)
[2022-09-18] MEDS ORDERED: ALPRAZolam 0.25 MG TAB PO ONE ×2 (21:00→22:00)
[2022-09-19] VITALS: BP 125/81
[2022-09-19 00:03] VITALS: BP 125/81
[2022-09-19 00:36] LABS: ABG BASE EXCESS 2.8 (-2.0-2.0); ABG HCO3 27.4 MEQ/L (22.0-26.0); ABG O2 SATURATION 89.6 % (95.0-99.0); ABG PARTIAL PRESSURE CO2 42.4 mmHg (35.0-45.0); ABG PARTIAL PRESSURE O2 60.8 mmHg (75.0-100.0); ABG STANDARD HCO3 26.7 MEQ/L (22.0-26.0); ABG TOTAL CO2 28.7 MEQ/L (23.0-31.0); ABG pH (ARTERIAL) 7.429 UNITS (7.350-7.450)
[2022-09-19] MEDS: IPRATROPIUM 0.5MG/ALBUTEROL 2.5MG INH SOL UD 3ML (DUONEB) NEB SCH ×2 (01:04→07:29)
[2022-09-19] MEDS: MEROPENEM INJ 1 GM in IV 1 EA IV SCH (03:18)
[2022-09-19 03:20] VITALS: BP 123/83
[2022-09-19 04:00] VITALS: BP 123/83
[2022-09-19 04:32] LABS: HEMOGLOBIN 12.6 g/dl (13.5-17.5); MEAN CORPUSCULAR HEMOGLOBIN 31.7 pg (27.0-33.0); MEAN CORPUSCULAR HGB CONC 33.2 g/dl (32.0-36.5); MEAN CORPUSCULAR VOLUME 95.5 fl (80.0-96.0); RED BLOOD COUNT 3.98 10^6/uL (4.30-6.10)
[2022-09-19 04:36] LABS: PLATELET COUNT, AUTOMATED 90 10^3/uL (150-450)
[2022-09-19 04:54] LABS: BLOOD UREA NITROGEN 35 MG/DL (9-23); CALCIUM LEVEL 8.2 MG/DL (8.3-10.6); CARBON DIOXIDE LEVEL 28 MMOL/L (20-31); CHLORIDE LEVEL 101 MMOL/L (98-107); CREATININE FOR GFR 0.63 MG/DL (0.70-1.30); GLOMERULAR FILTRATION RATE > 60.0 (>49); GLUCOSE, FASTING 142 MG/DL (74-106); MAGNESIUM LEVEL 2.4 MG/DL (1.8-2.4); POTASSIUM SERUM 4.5 MMOL/L (3.5-5.1); SODIUM LEVEL 137 MMOL/L (136-145)
[2022-09-19] MEDS: methylPREDNISolone 125MG 2ML VIAL IV SCH (05:29)
[2022-09-19 05:33] LABS: LYMPHOCYTES 3 % (16-44); METAMYELOCYTES 2 % (0-0); MONOCYTES 2 % (0-5); MYELOCYTES 2 % (0-0); NEUTROPHILS 82 % (28-66); NUCLEATED RED BLOOD CELL 2 % (0-0)
[2022-09-19 05:34] LABS: PLATELET ESTIMATE DECREASED (NORMAL)
[2022-09-19 08:00] VITALS: BP 131/82
[2022-09-19] MEDS ORDERED: FUROSEMIDE 40MG/4ML VIAL IV ONE (08:00)
[2022-09-19] MEDS ORDERED: LORazepam 2 MG/ML 1ML VIAL IV STA (08:00)
[2022-09-19] MEDS ORDERED: LORazepam 2 MG/ML 1ML VIAL As Ordered ONE (08:10)
[2022-09-19] MEDS ORDERED: FUROSEMIDE 40MG/4ML VIAL As Ordered ONE (08:13)
[2022-09-19] MEDS: BACTRIM 160MG/800MG DS TAB PO SCH (09:00)
[2022-09-19] MEDS: guaiFENesin ER 600 MG TAB PO SCH (09:00)
[2022-09-19] MEDS: ASPIRIN 81MG ENTERIC TABLET PO SCH (09:00)
[2022-09-19] MEDS: DOCUSATE SODIUM 100MG CAPSULE PO SCH (09:00)
[2022-09-19] MEDS: PANTOPRAZOLE 40MG TAB (PROTONIX) PO SCH (09:00)
[2022-09-19] MEDS: ENOXAPARIN 40MG/0.4ML SYRINGE (J1650 PER 10MG) SC SCH (09:55)
[2022-09-19] MEDS ORDERED: LORazepam 2 MG/ML 1ML VIAL IV PRN (11:25)
[2022-09-19] MEDS ORDERED: SCOPOLAMINE 1MG TRANSDERMAL PATCH TOP PRN (11:25)
[2022-09-19] MEDS ORDERED: MORPHINE SULF IN 0.9% NACL 100 MG in IV 1 EA IV SCH ×2 (12:00)
== END 2022-09-20 06:10 | disposition expired | DRG 133 ==
LOC: M ED 14:04 → M ED INP 16:35 → ENRESERV 16:52 → M PCU 17:55 → M ICU 09-15 03:30
PROVIDERS: ADMIT Internal Medicine; ATTEND Internal Medicine
PROC: 5A09457 Assistance with Respiratory Ventilation, 24-96 Consecutive Hours, Continuous Positive Airway Pressure (ICD-10-PCS; principal; 2022-09-16)
DX: J96.21 Acute and chronic respiratory failure with hypoxia (principal); J15.9 Unspecified bacterial pneumonia; E87.20 Acidosis, unspecified; I27.23 Pulmonary hypertension due to lung diseases and hypoxia; D69.6 Thrombocytopenia, unspecified; J43.9 Emphysema, unspecified; C34.11 Malignant neoplasm of upper lobe, right bronchus or lung; C34.32 Malignant neoplasm of lower lobe, left bronchus or lung; J84.10 Pulmonary fibrosis, unspecified; Z99.81 Dependence on supplemental oxygen; R04.2 Hemoptysis; I25.10 Atherosclerotic heart disease of native coronary artery without angina pectoris; Z66 Do not resuscitate; K21.9 Gastro-esophageal reflux disease without esophagitis; Z92.3 Personal history of irradiation; Z87.891 Personal history of nicotine dependence; Z79.52 Long term (current) use of systemic steroids; Z79.82 Long term (current) use of aspirin; Z79.899 Other long term (current) drug therapy; Z88.0 Allergy status to penicillin; Z20.822 Contact with and (suspected) exposure to COVID-19